=== PATIENT | female | born 1970 | race Caucasian/White ===

== ENCOUNTER 2021-02-23 16:51 | Emergency (ER) | payer SELFPAY ==
[2021-02-23] MEDS ORDERED: Metoclopramide HCl 10 MG/2 ML VIAL ONE (18:40)
[2021-02-23] MEDS ORDERED: Acetaminophen 500 MG TAB ONE (18:40)
[2021-02-23] MEDS ORDERED: diphenhydrAMINE 12.5 MG/5 ML UDCUP ONE (18:41)
[2021-02-23] MEDS ORDERED: Ketorolac Tromethamine 30 MG/ML VIAL ONE (18:41)
[2021-02-23] MEDS ORDERED: Dexamethasone 10 MG/ML VIAL ONE (18:41)
[2021-02-23] MEDS ORDERED: diphenhydrAMINE 50 MG/ML VIAL ONE (18:42)
== END 2021-02-23 20:04 | disposition home or self-care (01) ==
LOC: ERS 16:51
DX: J32.1 Chronic frontal sinusitis (principal); R51.9 Headache, unspecified; E11.9 Type 2 diabetes mellitus without complications; I10 Essential (primary) hypertension
CPT/HCPCS: 96365; 96375; J1100; J1200; J1885; J2765; Q0163